=== PATIENT | male | born 1995 | race African-American/Black ===

== ENCOUNTER 2017-07-25 16:31 | Emergency (ER) | payer OTHER ==
[~2017-07-25] VITALS: Ht 185.4 cm; Wt 75.0 kg
[2017-07-25 16:32] VITALS: BP 112/74
[2017-07-25] MEDS ORDERED: BACITRACIN ZINC OINT UDPKT TOP ONE (16:45)
[2017-07-25] MEDS ORDERED: LIDOCAINE HCL 1% 20ML VIAL (Pyxis) INJ MC ONE (16:45)
[2017-07-25] MEDS ORDERED: ACETAMINOPHEN 500MG TABLET PO ONE (16:45)
[2017-07-25] MEDS ORDERED: TETANUS, DIPHTHERIA, PERTUSSIS VAC/PF 0.5ML (>7YR OLD) IM ONE (16:45)
== END 2017-07-25 20:46 | disposition left against medical advice (07) ==
LOC: ER 16:45
DX: S51.811A Laceration without foreign body of right forearm, initial encounter (principal); W01.110A Fall on same level from slipping, tripping and stumbling with subsequent striking against sharp glass, initial encounter; Y93.89 Activity, other specified; Y92.018 Other place in single-family (private) house as the place of occurrence of the external cause
CPT/HCPCS: 99283; J3490; 90471